=== PATIENT | female | born 1995 | race Hispanic/Latino ===

== ENCOUNTER 2020-10-23 15:23 | Emergency (ER) | payer OTHER, SELFPAY ==
--- NOTE | 2020-10-23 17:16 | RAD REPORT ---
EXAM DESCRIPTION: RAD - Hand Right 3 View - 10/23/2020 5:00 pm CLINICAL HISTORY: Right hand pain status post injury FINDINGS: No fracture or dislocation is seen.
[2020-10-23] MEDS ORDERED: LIDOCAINE 1% MPF 5 ML VIAL ONE ×2 (18:00→18:14)
--- NOTE | 2020-10-23 18:17 | EDPHYS ---
Physician Documentation [facility] Name: Estrella Stahl Age: 25 yrs Sex: Female : 1995 Arrival Date: 10/23/2020 Time: 15:27 Bed 20 Private MD: ED Physician Harry Wu HPI: 10/23 18:24 This 25 yrs old Female presents to ER via Ambulatory with complaints of Finger tw4 Injury. 18:24 The patient or guardian reports injury, pain. The complaints affect the dorsal aspect tw4 of distal phalanx of right thumb and palmar aspect of distal phalanx of right thumb. Context: The problem was sustained at home. Onset: The symptoms/episode began/occurred 4 day(s) ago. Modifying factors: The symptoms are alleviated by nothing, the symptoms are aggravated by nothing. Severity of symptoms: At their worst the symptoms were moderate. The patient has not experienced similar symptoms in the past. 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 - Social history:: Smoking status: Patient denies any tobacco usage or history of. ROS: 18:24 Constitutional: Negative for fever, chills, and weight loss, Eyes: Negative for injury, tw4 pain, redness, and discharge, Cardiovascular: Negative for chest pain, palpitations, and edema, Respiratory: Negative for shortness of breath, cough, wheezing, and pleuritic chest pain, Abdomen/GI: Negative for abdominal pain, nausea, vomiting, diarrhea, and constipation, Back: Negative for injury and pain, Skin: Negative for injury, rash, and discoloration. 18:24 MS/extremity: Positive for pain, tenderness. Exam: 18:24 Constitutional: This is a well developed, well nourished patient who is awake, alert, tw4 and in no acute distress. Head/Face: Normocephalic, atraumatic. Chest/axilla: Normal chest wall appearance and motion. Nontender with no deformity. No lesions are appreciated. Cardiovascular: Regular rate and rhythm with a normal S1 and S2. No gallops, murmurs, or rubs. Normal PMI, no JVD. No pulse deficits. Respiratory: Lungs have equal breath sounds bilaterally, clear to auscultation and percussion. No rales, rhonchi or wheezes noted. No increased work of breathing, no retractions or nasal flaring. 18:24 Musculoskeletal/extremity: Extremities: noted in the dorsal aspect of distal phalanx of right thumb and palmar aspect of distal phalanx of right thumb: decreased ROM, pain. Vital Signs: 16:26 BP 162 / 107; Pulse 89; Resp 18; Temp 98.6(O); Pulse Ox 100% on R/A; Weight 77.11 kg; em Height 5 ft. 3 in. (160.02 cm); Pain 8/10; 17:35 BP 150 / 102; Pulse 89; Resp 18; Temp 98.6(O); Pulse Ox 100% on R/A; Weight 77.11 kg; ld1 Pain 4/10; 17:35 Body Mass Index 30.11 (77.11 kg, 160.02 cm) ld1 Procedures: 18:24 I \T\ D: Incision and drainage was performed for an abscess of the right dorsal aspect of tw4 distal phalanx of right thumb and palmar aspect of distal phalanx of right thumb Prepped with Betadine, Anesthetized with 2 ml's 1% Lidocaine. Incised with handheld cautery, Drained small amount the patient tolerated the procedure well, subungual hematoma drained. MDM: 18:16 Patient medically screened. tw4 18:24 Differential diagnosis: dislocation. Data reviewed: vital signs, nurses notes. Data tw4 interpreted: Pulse oximetry: Interpretation: normal. Counseling: I had a detailed discussion with the patient and/or guardian regarding: the historical points, exam findings, and any diagnostic results supporting the discharge/admit diagnosis. 10/23 16:31 Order name: Hand Right 3 View XRAY em Administered Medications: 17:54 Drug: Lidocaine (1 %) 5 mg Route: Infiltration; ld1 18:17 Follow up: Response: No adverse reaction; Pain is decreased ld1 18:25 Drug: Ibuprofen 800 mg Route: PO; ld1 18:26 Drug: Cleocin (clindamycin) 150 mg Route: PO; ld1 Disposition: 04/27/21 18:16 Discharged to Home. Impression: subungal hematoma. - Condition is Stable. - Discharge Instructions: Subungual Hematoma. - Prescriptions for Cleocin 300 mg Oral Capsule - take 1 capsule by ORAL route every 6 hours for 10 days; 40 capsule. Ibuprofen 800 mg Oral Tablet - take 1 tablet by ORAL route every 12 hours As needed take with food; 20 tablet. - Medication Reconciliation Form, Thank You Letter, Antibiotic Education, Prescription Opioid Use form. - Follow up: Private Physician; When: Upon discharge from the Emergency Department; Reason: Recheck today's complaints, Continuance of care, Re-evaluation by your physician. - Problem is new. - Symptoms have improved. Signatures: Dispatcher [employer] Igor Hope, RN RN Harry Ohara MD MD tw4 Inna Burnham RN RN ld1 Corrections: (The following items were deleted from the chart) 18:25 18:16 10/23/2020 18:16 Discharged to Home. Impression: subungal hematoma. Condition is ld1 Stable. Forms are Medication Reconciliation Form, Thank You Letter, Antibiotic Education, Prescription Opioid Use. Follow up: Private Physician; When: Upon discharge from the Emergency Department; Reason: Recheck today's complaints, Continuance of care, Re-evaluation by your physician. Problem is new. Symptoms have improved. tw4
--- NOTE | 2020-10-23 18:17 | ER ---
Nurse's Notes [facility] Name: Estrella Stahl Age: 25 yrs Sex: Female : 1995 Arrival Date: 10/23/2020 Time: 15:27 Bed 20 Private MD: Diagnosis: subungal hematoma Presentation: 10/23 16:26 Chief complaint: Patient states: smashed right thumb in car door 3 days ago, bruising em and swelling noted. Coronavirus screen: Client denies travel out of the [place] in the last 14 days. Ebola Screen: Patient negative for fever greater than or equal to 101.5 degrees Fahrenheit, and additional compatible Ebola Virus Disease symptoms Patient denies exposure to infectious person. Patient denies travel to an Ebola-affected area in the 21 days before illness onset. No symptoms or risks identified at this time. Initial Sepsis Screen: Does the patient meet any 2 criteria? No. Patient's initial sepsis screen is negative. Does the patient have a suspected source of infection? No. Patient's initial sepsis screen is negative. Risk Assessment: Do you want to hurt yourself or someone else? Patient reports no desire to harm self or others. Onset of symptoms was October 23, 2020. 16:26 Method Of Arrival: Ambulatory em 16:26 Acuity: JUDY 4 em Triage Assessment: 18:24 General: Appears in no apparent distress. comfortable, Behavior is calm, cooperative, ld1 appropriate for age. Injury Description: Crush injury sustained to dorsal aspect of distal phalanx of right thumb, dorsal aspect of proximal phalanx of right thumb, palmar aspect of distal phalanx of right thumb and palmar aspect of proximal phalanx of right thumb. 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 - Social history:: Smoking status: Patient denies any tobacco usage or history of. Screenin:35 Abuse screen: Denies threats or abuse. Denies injuries from another. Nutritional ld1 screening: No deficits noted. Tuberculosis screening: No symptoms or risk factors identified. Fall Risk None identified. Assessment: 17:35 General: Appears in no apparent distress. comfortable, Behavior is calm, cooperative, ld1 appropriate for age. Pain: Complains of pain in dorsal aspect of distal phalanx of right thumb and dorsal aspect of proximal phalanx of right thumb Pain currently is 4 out of 10 on a pain scale. Quality of pain is described as throbbing, Pain began 2-3 days ago. Is continuous. Neuro: Level of Consciousness is awake, alert, obeys commands, Oriented to person, place, time, situation, Appropriate for age. Cardiovascular: Capillary refill < 3 seconds Patient's skin is warm and dry. Respiratory: Airway is patent Respiratory effort is even, unlabored, Respiratory pattern is regular, symmetrical. GI: Abdomen is flat, non-distended. : No deficits noted. EENT: No deficits noted. Derm: No deficits noted. Musculoskeletal: Swelling absent Reports patient reports pain 4/10 in right thumb, she slammed her finger in the car door. Vital Signs: 16:26 BP 162 / 107; Pulse 89; Resp 18; Temp 98.6(O); Pulse Ox 100% on R/A; Weight 77.11 kg; em Height 5 ft. 3 in. (160.02 cm); Pain 8/10; 17:35 BP 150 / 102; Pulse 89; Resp 18; Temp 98.6(O); Pulse Ox 100% on R/A; Weight 77.11 kg; ld1 Pain 4/10; 17:35 Body Mass Index 30.11 (77.11 kg, 160.02 cm) ld1 ED Course: 15:27 Patient arrived in ED. mr 16:29 Triage completed. em 16:30 Arm band placed on. em 16:44 Harry Wu MD is Attending Physician. tw4 17:01 Hand Right 3 View XRAY In Process Unspecified. EDMS 17:12 Lesa Chang, RN is Primary Nurse. jl7 17:35 Inna Burnham, MILO is Primary Nurse. ld1 17:35 Patient has correct armband on for positive identification. Bed in low position. Call ld1 light in reach. Side rails up X 1. Pulse ox on. NIBP on. Door closed. Noise minimized. Warm blanket given. 17:35 No provider procedures requiring assistance completed. ld1 18:24 Patient did not have IV access during this emergency room visit. ld1 Administered Medications: 17:54 Drug: Lidocaine (1 %) 5 mg Route: Infiltration; ld1 18:17 Follow up: Response: No adverse reaction; Pain is decreased ld1 18:25 Drug: Ibuprofen 800 mg Route: PO; ld1 18:26 Drug: Cleocin (clindamycin) 150 mg Route: PO; ld1 Outcome: 18:16 Discharge ordered by . tw4 18:24 Discharged to home ambulatory. ld1 18:24 Condition: stable 18:24 Discharge instructions given to patient, Instructed on discharge instructions, follow up and referral plans. medication usage, Demonstrated understanding of instructions, follow-up care, medications. 18:25 Patient left the ED. ld1 Signatures: Dispatcher [employer] Mckenzie Lepe Edgar, RN RN Lesa Workman RN RN jl7 Harry Wu MD MD tw4 Inna Burnham RN RN ld1
[2020-10-23 18:56] VITALS: TEMP 98.6; O2SAT 100
[2020-10-23 18:57] VITALS: BP 150/102
== END 2020-10-23 18:25 | disposition home or self-care (01) ==
LOC: ER 15:23
PROC: 0H9FXZZ Drainage of Right Hand Skin, External Approach (ICD-10-PCS; principal; 2020-10-23)
DX: S60.111A Contusion of right thumb with damage to nail, initial encounter (principal); I10 Essential (primary) hypertension; X58.XXXA Exposure to other specified factors, initial encounter; Y92.009 Unspecified place in unspecified non-institutional (private) residence as the place of occurrence of the external cause
CPT/HCPCS: 99283